=== PATIENT | male | born 1995 | race Caucasian/White ===

== ENCOUNTER 2017-11-03 20:26 | Emergency (ER) | payer MEDICAID ==
--- NOTE | 2017-11-03 21:07 | EDPHYS ---
Physician Documentation [facility] Name: Mitch Deshpande Age: 22 yrs Sex: Male : 1995 Arrival Date: 11/03/2017 Time: 20:33 Bed 15 Private MD: ED Physician Andrew Gonzalez HPI: 11/03 21:03 This 22 yrs old Male presents to ER via EMS with complaints of Seizure. snw 21:03 The patient presents with a history of multiple seizures, the episode(s) was witnessed, snw by family, father, mother. Character of seizure(s): Loss of consciousness: the patient did not lose consciousness, Motor activity: focal activity, blank stare, Incontinence: none, Apnea: the patient did not experience apnea, Circulation: the patient did not experience evidence of pulse disturbance. Seizure onset: today. Seizure Hx: Cause: Epilepsy, Seizure medications: Keppra. Associated injury: The patient did not suffer any apparent associated injury. EMS care: Ativan, 4 mg(s), with resolution of the seizure. Current symptoms: malaise. The patient has experienced similar episodes in the past. It is unknown whether or not the patient has recently seen a physician. family states he is out of [facility]. Historical: - Allergies: 20:42 Sulfa (Sulfonamide Antibiotics); ea - Home Meds: 20:42 Depakote ER Oral [Active]; ea - PMHx: 20:42 Seizures; ea - Immunization history:: Adult Immunizations up to date. - Social history:: Smoking status: Patient/guardian denies using tobacco. - Ebola Screening: : No symptoms or risks identified at this time. ROS: 21:02 Constitutional: Negative for fever, chills, and weight loss, Eyes: Negative for injury, snw pain, redness, and discharge, ENT: Negative for injury, pain, and discharge, Neck: Negative for injury, pain, and swelling, Cardiovascular: Negative for chest pain, palpitations, and edema, Respiratory: Negative for shortness of breath, cough, wheezing, and pleuritic chest pain, Abdomen/GI: Negative for abdominal pain, nausea, vomiting, diarrhea, and constipation, Back: Negative for injury and pain, : Negative for injury, bleeding, discharge, and swelling, MS/Extremity: Negative for injury and deformity, Skin: Negative for injury, rash, and discoloration. 21:02 Neuro: Positive for seizure activity, off meds x 1 day. Exam: 21:01 Constitutional: This is a well developed, well nourished patient who is awake, alert, snw and in no acute distress. Head/Face: Normocephalic, atraumatic. ENT: Nares patent. No nasal discharge, no septal abnormalities noted. Tympanic membranes are normal and external auditory canals are clear. Oropharynx with no redness, swelling, or masses, exudates, or evidence of obstruction, uvula midline. Mucous membranes moist. Neck: Trachea midline, no thyromegaly or masses palpated, and no cervical lymphadenopathy. Supple, full range of motion without nuchal rigidity, or vertebral point tenderness. No Meningismus. Chest/axilla: Normal chest wall appearance and motion. Nontender with no deformity. No lesions are appreciated. Cardiovascular: Regular rate and rhythm with a normal S1 and S2. No gallops, murmurs, or rubs. Normal PMI, no JVD. No pulse deficits. Respiratory: Lungs have equal breath sounds bilaterally, clear to auscultation and percussion. No rales, rhonchi or wheezes noted. No increased work of breathing, no retractions or nasal flaring. Abdomen/GI: Soft, non-tender, with normal bowel sounds. No distension or tympany. No guarding or rebound. No evidence of tenderness throughout. Back: No spinal tenderness. No costovertebral tenderness. Full range of motion. Skin: Warm, dry with normal turgor. Normal color with no rashes, no lesions, and no evidence of cellulitis. MS/ Extremity: Pulses equal, no cyanosis. Neurovascular intact. Full, normal range of motion. Neuro: Awake and alert, GCS 15, oriented to person, place, time, and situation. Cranial nerves II-XII grossly intact. Motor strength 5/5 in all extremities. Sensory grossly intact. Cerebellar exam normal. Normal gait. 21:01 Neuro: Awake and alert, GCS 15, oriented to person, place, time, and situation. Cranial nerves II-XII grossly intact. Motor strength 5/5 in all extremities. Sensory grossly intact. Cerebellar exam normal. Tired appearing 21:01 Eyes: Periorbital structures: appear normal, Pupils: dilated, bilaterally, Extraocular movements: no acute changes, Conjunctiva: normal, Sclera: Vital Signs: 20:27 BP 149 / 96; Pulse 76; Resp 18; Temp 98.9; Pulse Ox 99% on R/A; Weight 77.11 kg; Height ea 6 ft. 3 in. (190.50 cm); Pain 0/10; 21:20 BP 124 / 68; Pulse 67; Resp 18; Pulse Ox 99% ; Pain 0/10; ea 20:27 Body Mass Index 21.25 (77.11 kg, 190.50 cm) ea [place] Coma Score: 20:42 Eye Response: spontaneous(4). Verbal Response: oriented(5). Motor Response: obeys ea commands(6). Total: 15. MDM: 20:38 Patient medically screened. snw 21:07 Data reviewed: vital signs, nurses notes. Data interpreted: Pulse oximetry: on room air snw is 99 %. Interpretation: normal. Counseling: I had a detailed discussion with the patient and/or guardian regarding: the historical points, exam findings, and any diagnostic results supporting the discharge/admit diagnosis, the presence of at least one elevated blood pressure reading (>120/80) during this emergency department visit, the need for outpatient follow up, to return to the emergency department if symptoms worsen or persist or if there are any questions or concerns that arise at home. Special discussion: I have referred the patient to see his PCP for further evaluation of high blood pressure. Based on the history and exam findings, there is no indication for further emergent testing or inpatient evaluation. I discussed with the patient/guardian the need to see the neurologist for further evaluation of the symptoms. I discussed with the patient/guardian the need to see the primary care provider for further evaluation of the symptoms. Administered Medications: 21:18 Drug: Keppra 1000 mg Route: PO; ea 21:29 Follow up: Response: No adverse reaction ea Disposition: 11/04 07:09 Co-signature as Attending Physician, Andrew Gonzalez MD I agree with the assessment and caitlyn plan of care. Disposition: 11/03/17 21:06 Discharged to Home. Impression: Epileptic seizures related to external causes, not intractable, Patient's unintentional underdosing of medication regimen. - Condition is Stable. - Discharge Instructions: Medicine Refill at the Emergency Department, Seizure, Adult. - Prescriptions for Keppra 500 mg Oral Tablet - take 1 tablet by ORAL route every 12 hours; 20 tablet. - Medication Reconciliation Form, Thank You Letter, Antibiotic Education, Prescription Opioid Use form. - Follow up: Private Physician; When: 2 - 3 days; Reason: Recheck today's complaints, Continuance of care, Re-evaluation by your physician. Follow up: Emergency Department; When: As needed; Reason: Worsening of condition. Signatures: Andrew Gonzalez MD MD cha Therrien, Shelly, ACCOUNTING SYSTEM EXPERT-C ACCOUNTING SYSTEM EXPERT-Csnw Jo Ann Sanon RN RN ea Corrections: (The following items were deleted from the chart) 11/03 21:32 21:06 11/03/2017 21:06 Discharged to Home. Impression: Epileptic seizures related to ea external causes, not intractable; Patient's unintentional underdosing of medication regimen. Condition is Stable. Forms are Medication Reconciliation Form, Thank You Letter, Antibiotic Education, Prescription Opioid Use. Follow up: Private Physician; When: 2 - 3 days; Reason: Recheck today's complaints, Continuance of care, Re-evaluation by your physician. Follow up: Emergency Department; When: As needed; Reason: Worsening of condition. snw
--- NOTE | 2017-11-03 21:07 | ER ---
Nurse's Notes [facility] Name: Mitch Deshpande Age: 22 yrs Sex: Male : 1995 Arrival Date: 11/03/2017 Time: 20:33 Bed 15 Private MD: Diagnosis: Epileptic seizures related to external causes, not intractable;Patient's unintentional underdosing of medication regimen Presentation: 11/03 20:27 Presenting complaint: EMS states: EMS reports they were called by family, pt had ea seizure about 30 min ago, pt reported he ran out of his medication and has not taken it since yesterday. EMS reports they gave 4 mg of Ativan prior to arrival. Transition of care: patient was not received from another setting of care. Onset of symptoms was November 03, 2017. Risk Assessment: Do you want to hurt yourself or someone else? Patient reports no desire to harm self or others. Initial Sepsis Screen: Does the patient meet any 2 criteria? No. Patient's initial sepsis screen is negative. Does the patient have a suspected source of infection? No. Patient's initial sepsis screen is negative. Care prior to arrival: Medication(s) given: 4 mg of ativan. 20:27 Method Of Arrival: EMS: [facility] ea 20:27 Acuity: NEO 3 ea Triage Assessment: 20:42 General: Appears in no apparent distress. Behavior is drowsy. Pain: Denies pain. EENT: ea No signs and/or symptoms were reported regarding the EENT system. Neuro: Level of Consciousness is awake, alert, obeys commands, Oriented to person, place, time, situation, Seizure activity reported prior to arrival. Family states "he was shaky, kind of jumpy for like 10 minutes". Cardiovascular: Heart tones S1 S2 present Patient's skin is warm and dry. Respiratory: Airway is patent Respiratory effort is even, unlabored, Respiratory pattern is regular, symmetrical. GI: Abdomen is non-distended, Bowel sounds present X 4 quads. : No signs and/or symptoms were reported regarding the genitourinary system. Derm: Skin is pink, warm \\T\\ dry. Musculoskeletal: No signs and/or symptoms reported regarding the musculoskeletal system. Historical: - Allergies: 20:42 Sulfa (Sulfonamide Antibiotics); ea - Home Meds: 20:42 Depakote ER Oral [Active]; ea - PMHx: 20:42 Seizures; ea - Immunization history:: Adult Immunizations up to date. - Social history:: Smoking status: Patient/guardian denies using tobacco. - Ebola Screening: : No symptoms or risks identified at this time. Screenin:40 Abuse screen: Denies threats or abuse. Nutritional screening: No deficits noted. ea Tuberculosis screening: No symptoms or risk factors identified. Fall Risk Secondary diagnosis (15 points) seizures. Assessment: 21:29 Reassessment: Patient and/or family updated on plan of care and expected duration. Pain ea level reassessed. Patient is alert, oriented x 3, equal unlabored respirations, skin warm/dry/pink. Discharge instructions given to patient, verbalized the understanding of instruction. Patient states feeling better. Vital Signs: 20:27 BP 149 / 96; Pulse 76; Resp 18; Temp 98.9; Pulse Ox 99% on R/A; Weight 77.11 kg; Height ea 6 ft. 3 in. (190.50 cm); Pain 0/10; 21:20 BP 124 / 68; Pulse 67; Resp 18; Pulse Ox 99% ; Pain 0/10; ea 20:27 Body Mass Index 21.25 (77.11 kg, 190.50 cm) ea [place] Coma Score: 20:42 Eye Response: spontaneous(4). Verbal Response: oriented(5). Motor Response: obeys ea commands(6). Total: 15. ED Course: 20:27 Arm band placed on right wrist. Patient placed in an exam room, on a stretcher. ea 20:27 Seizure precautions initiated. ea 20:33 Patient arrived in ED. ea 20:38 Smitha Simon FNP-C is PHCP. snw 20:38 Andrew Gonzalez MD is Attending Physician. snw 20:40 Triage completed. ea 21:11 Jo Ann Sanon, LOTTIE is Primary Nurse. ea 21:30 No provider procedures requiring assistance completed. IV discontinued, intact, ea bleeding controlled, No redness/swelling at site. Pressure dressing applied. Administered Medications: 21:18 Drug: Keppra 1000 mg Route: PO; ea 21:29 Follow up: Response: No adverse reaction ea Outcome: 21:06 Discharge ordered by . snw 21:30 Discharged to home via wheelchair, with family. ea 21:30 Condition: improved 21:30 Discharge instructions given to patient, Instructed on discharge instructions, follow up and referral plans. medication usage, Demonstrated understanding of instructions, follow-up care, medications, Prescriptions given X 1. 21:32 Patient left the ED. keyur Signatures: Smitha Simon, CITRIX ENGINEER-C CITRIX ENGINEER-Csnw Jo Ann Sanon, RN RN keyur
[2017-11-03] MEDS ORDERED: levETIRAcetam 500 MG TAB ONE (21:21)
[2017-11-03 21:51] VITALS: TEMP 98.9; O2SAT 99
[2017-11-03 21:52] VITALS: BP 124/68
== END 2017-11-03 21:32 | disposition home or self-care (01) ==
LOC: ER 20:26
DX: G40.909 Epilepsy, unspecified, not intractable, without status epilepticus (principal); Z91.138 Patient's unintentional underdosing of medication regimen for other reason; Z88.2 Allergy status to sulfonamides
CPT/HCPCS: 99283